=== PATIENT | female | born 1985 | race Caucasian/White ===

== ENCOUNTER 2016-07-01 15:35 | Emergency (ER) | payer MEDICAID ==
[~2016-07-01] VITALS: Ht 172.7 cm; Wt 77.0 kg
[~2016-07-01 15:35] MED LIST: BACT800T5 PO
[2016-07-01 15:44] VITALS: PULSE 68; RESP 16; TEMP 98.5; O2SAT 97
--- NOTE | 2016-07-01 16:05 | PD ---
HPI Chief Complaint: GI Complaint Time Seen by Provider: 15:51 Travel History International Travel<30 days: No Contact w/Intl Traveler<30days: No Traveled to known affect area: No History of Present Illness HPI This 30-year-old female says she has been feeling sluggish for a while. She says she has no energy and feels tired all the time. She says that there is no chance of . She has not been sexually active for him. He has not been fever or chills. She did see an eye doctor and was told that her left eye was a little bigger than the right and she should be evaluated for thyroid issues. She has no history of thyroid issues. She has some breast tenderness with her period. PFSH Past Medical History Hx Anticoagulant Therapy: No Heart Rhythm Problems: Yes (murmur) Diabetes: No Diminished Hearing: No Integumentary: Yes (DERMATITIS) Immunizations Current: Yes Tetanus Vaccination: > 5 Years Influenza Vaccination: No ?: Not : 6 Para: 3 Miscarriage: 2 : 1 Ovarian Cysts: Yes Tubal Ligation: Yes Past Surgical History Cholecystectomy: Yes Mastectomy: No Social History Alcohol Use: Yes (occ) Tobacco Use: Yes ("I SMOKE WHEN I DRINK ONLY") Substance Use: No (DENIES) Allergies-Medications (Allergen,Severity, Reaction): Coded Allergies: Penicillin (Verified Allergy, Severe, Anaphylaxis, 07/01/16) "I ALMOST FROM IT" Egg Allergy (Verified Allergy, Intermediate, Rash, 07/01/16) ALL OVER Reported Meds & Prescriptions Reported Meds & Active Scripts Active No Active Prescriptions or Reported Medications Review of Systems General / Constitutional: No: Fever, Chills Eyes: No: Diploplia HENT: No: Headaches, Vertigo Cardiovascular: No: Chest Pain or Discomfort, Palpitations Respiratory: No: Cough, Shortness of Breath Gastrointestinal: Positive: Nausea Genitourinary: No: Urgency Musculoskeletal: No: Myalgias, Arthralgias Skin: No Rash, No Itching Neurologic: Positive: Weakness, No: Syncope, Focal Abnormalities Psychiatric: No: Anxiety Endocrine: No: Heat Intolerance Hematologic/Lymphatic: No: Easy Bruising Physical Exam Narrative GENERAL: Well-developed female SKIN: Focused skin assessment warm/dry. HEAD: Atraumatic. Normocephalic. EYES: Pupils equal and round. No scleral icterus. No injection or drainage. ENT: No nasal bleeding or discharge. Mucous membranes pink and moist. NECK: Trachea midline. No JVD. Heart is not palpable CARDIOVASCULAR: Regular rate and rhythm. No murmur appreciated. RESPIRATORY: No accessory muscle use. Clear to auscultation. Breath sounds equal bilaterally. GASTROINTESTINAL: Abdomen soft, non-tender, nondistended. Hepatic and splenic margins not palpable. MUSCULOSKELETAL: No obvious deformities. No clubbing. No cyanosis. No edema. NEUROLOGICAL: Awake and alert. No obvious cranial nerve deficits. Motor grossly within normal limits. Normal speech. PSYCHIATRIC: Appropriate mood and affect; insight and judgment normal. Data Data Last Documented VS Vital Signs Date Time Temp Pulse Resp B/P Pulse Ox O2 Delivery O2 Flow Rate FiO2 07/01/16 15:44 98.5 68 16 97 Orders Complete Blood Count With Diff (07/01/16 16:00) Comprehensive Metabolic Panel (07/01/16 16:00) Urinalysis - C+S If Indicated (07/01/16 16:00) Magnesium (Mg) (07/01/16 16:00) Thyroid Stimulating Hormone (07/01/16 16:00) Labs Laboratory Tests Test 07/01/16 07/01/16 16:10 16:50 White Blood Count 5.7 TH/MM3 Red Blood Count 4.51 MIL/MM3 Hemoglobin 12.9 GM/DL Hematocrit 38.0 % Mean Corpuscular Volume 84.5 FL Mean Corpuscular Hemoglobin 28.7 PG Mean Corpuscular Hemoglobin 34.0 % Concent Red Cell Distribution Width 13.4 % Platelet Count 246 TH/MM3 Mean Platelet Volume 7.6 FL Neutrophils (%) (Auto) 64.3 % Lymphocytes (%) (Auto) 24.3 % Monocytes (%) (Auto) 4.7 % Eosinophils (%) (Auto) 5.9 % Basophils (%) (Auto) 0.8 % Neutrophils # (Auto) 3.7 TH/MM3 Lymphocytes # (Auto) 1.4 TH/MM3 Monocytes # (Auto) 0.3 TH/MM3 Eosinophils # (Auto) 0.3 TH/MM3 Basophils # (Auto) 0.0 TH/MM3 CBC Comment DIFF FINAL Differential Comment Sodium Level 142 MEQ/L Potassium Level 3.8 MEQ/L Chloride Level 110 MEQ/L Carbon Dioxide Level 24.9 MEQ/L Anion Gap 7 MEQ/L Blood Urea Nitrogen 15 MG/DL Creatinine 0.84 MG/DL Estimat Glomerular Filtration 80 ML/MIN Rate Random Glucose 110 MG/DL Calcium Level 8.7 MG/DL Magnesium Level 2.0 MG/DL Total Bilirubin 0.8 MG/DL Aspartate Amino Transf 17 U/L (AST/SGOT) Alanine Aminotransferase 22 U/L (ALT/SGPT) Alkaline Phosphatase 60 U/L Total Protein 7.6 GM/DL Albumin 3.9 GM/DL Thyroid Stimulating Hormone 1.130 uIU/ML 3rd Gen Urine pH 6.5 Urine Protein NEG mg/dL Urine Glucose (UA) NEG mg/dL Urine Ketones NEG mg/dL Urine Occult Blood SMALL Urine Nitrite NEG Urine Bilirubin NEG Urine Leukocyte Esterase NEG MDM Medical Decision Making Medical Screen Exam Complete: Yes Emergency Medical Condition: Yes Medical Record Reviewed: Yes Differential Diagnosis Differential includes anemia, hypothyroidism, generalized malaise Narrative Course Hemoglobin is normal. Her TSH is normal. Urine just shows trace blood no evidence of infection. Etiology for her malaise has not been determined. I recommended she follow up with her own medical doctor Diagnosis Primary Impression: Generalized weakness Departure Forms: Tests/Procedures, Work Release Enter return to work date: Jul 02, 2016 Scripts No Active Prescriptions or Reported Meds Disposition: DISCHARGE HOME Condition: Stable Rishi Paz MD Jul 01, 2016 16:05
[2016-07-01 16:39] LABS: CHLORIDE 110 MEQ/L (98-107); POTASSIUM 3.8 MEQ/L (3.5-5.1); SODIUM (NA) 142 MEQ/L (136-145)
[2016-07-01 16:42] LABS: ANION GAP 7 MEQ/L (5-15); BICARBONATE 24.9 MEQ/L (21.0-32.0); BLOOD UREA NITROGEN 15 MG/DL (7-18)
[2016-07-01 16:45] LABS: ALT (GPT) 22 U/L (10-53); AST (GOT) 17 U/L (15-37); GLOMERULAR FILTRATION RATE 80 ML/MIN (>89)
[2016-07-01 16:47] LABS: TOTAL BILIRUBIN ADULT 0.8 MG/DL (0.2-1.0)
[2016-07-01 16:48] LABS: ALKALINE PHOSPHATASE 60 U/L (45-117)
[2016-07-01 17:21] LABS: AUTOMATED NEUTROPHIL # 3.7 TH/MM3 (1.8-7.7); BASOPHIL % 0.8 % (0.0-2.0); EOSINOPHIL # 0.3 TH/MM3 (0-0.4); EOSINOPHIL % 5.9 % (0.0-4.0); HEMO FLAGS DIFF FINAL; LYMPH % 24.3 % (9.0-44.0); LYMPHOCYTE # 1.4 TH/MM3 (1.0-4.8); MEAN CELL VOLUME 84.5 FL (80.0-100.0); MEAN CORPUSCULAR HEMOGLOBIN 28.7 PG (27.0-34.0); MONO % 4.7 % (0.0-8.0); NEUT % 64.3 % (16.0-70.0); PLATELET COUNT 246 TH/MM3 (150-450); RED BLOOD COUNT 4.51 MIL/MM3 (4.00-5.30); RED CELL DISTRIBUTION WIDTH 13.4 % (11.6-17.2); WHITE BLOOD COUNT 5.7 TH/MM3 (4.0-11.0)
[2016-07-01 17:27] LABS: BLOOD, URINE SMALL (NEG); GLUCOSE,URINE NEG (NEG); KETONE, URINE NEG (NEG); NITRITE,URINE NEG (NEG); PH, URINE 6.5 (5.0-8.5)
[2016-07-01 17:40] LABS: METHOD OF COLLECTION CLEAN CATCH
[2016-07-01 17:41] LABS: URINE COLOR YELLOW (YELLW/STRAW); WBC, URINE 0-2 /hpf (0-5)
[2016-07-01 17:42] LABS: BACTERIA, URINE FEW /hpf; MUCUS URINE MOD /lpf (OCC); SQUAMOUS EPITHELIAL CELL URINE 0-5 /hpf (0-5)
[2016-07-01 17:48] VITALS: BP 128/74; PULSE 66; RESP 16; O2SAT 97
[2016-07-01 18:49] LABS: COMMENT (UR) CULT NOT INDICATED; CULTURE IF INDICATED CULT NOT INDICATED
== END 2016-07-01 18:16 | disposition home or self-care (01) ==
LOC: PHED 15:35
DX: R53.1 Weakness (principal); Z72.0 Tobacco use
CPT/HCPCS: 80053; 81001; 83735; 84443; 85025; 99283

== ENCOUNTER 2016-08-28 18:51 | Emergency (ER) | payer SELFPAY ==
[~2016-08-28] VITALS: Ht 172.7 cm; Wt 79.4 kg
[2016-08-28 19:45] VITALS: BP 110/76; PULSE 56; RESP 18; TEMP 98; O2SAT 98
[2016-08-28 19:58] LABS: GLUCOSE,URINE NEG (NEG); KETONE, URINE NEG (NEG); NITRITE,URINE NEG (NEG); PH, URINE 6.5 (5.0-8.5)
[2016-08-28 20:04] LABS: BLOOD, URINE MOD (NEG); URINE COLOR YELLOW (YELLW/STRAW)
[2016-08-28 20:06] LABS: COMMENT (UR) CULT NOT INDICATED; CULTURE IF INDICATED CULT NOT INDICATED; RBC, URINE 0-3 /hpf (0-3); WBC, URINE 0-2 /hpf (0-5)
[2016-08-28 20:45] VITALS: BP 108/64; PULSE 58; RESP 18; O2SAT 100
--- NOTE | 2016-08-28 21:08 | PD ---
HPI Chief Complaint: Fly Winder Problem/Complaint Time Seen by Provider: 20:24 Travel History International Travel<30 days: No Contact w/Intl Traveler<30days: No Traveled to known affect area: No History of Present Illness HPI 31-year-old female here for evaluation of lower abdominal cramping, foul- smelling vaginal discharge, and a vesicular lesion on her outer left lower lip. Patient describes lower abdominal cramping for last 3 weeks. History of bilateral tubal ligation and cholecystectomy. No other abdominal surgeries. She has noted foul-smelling vaginal discharge. She is , however there was a recent split in her marriage several months ago, with the couple returning together 2 months ago. A couple years ago she did have chlamydia with her current . No urinary symptoms. No fevers. No vaginal bleeding. PFSH Past Medical History Hx Anticoagulant Therapy: No Heart Rhythm Problems: Yes (murmur) Diabetes: No Diminished Hearing: No Integumentary: Yes (DERMATITIS) Immunizations Current: Yes ?: Not LMP: 4 days ago : 6 Para: 3 Miscarriage: 2 : 1 Ovarian Cysts: Yes Tubal Ligation: Yes Past Surgical History Cholecystectomy: Yes Mastectomy: No Social History Alcohol Use: Yes (occ) Tobacco Use: Yes ("I SMOKE WHEN I DRINK ONLY") Substance Use: No (DENIES) Allergies-Medications (Allergen,Severity, Reaction): Coded Allergies: Penicillin (Verified Allergy, Severe, Anaphylaxis, 08/28/16) "I ALMOST FROM IT" Egg Allergy (Verified Allergy, Intermediate, Rash, 08/28/16) ALL OVER Reported Meds & Prescriptions Reported Meds & Active Scripts Active Acyclovir 800 Mg Tab 800 Mg PO 5 TIMES A DAY 5 Days Flagyl (Metronidazole) 500 Mg Tab 500 Mg PO BID 7 Days Review of Systems Except as stated in HPI: all other systems reviewed are Neg Physical Exam Narrative GENERAL: Well-developed, well-nourished, comfortable, no acute distress. SKIN: Focused skin assessment warm/dry. HEAD: Atraumatic. Normocephalic. EYES: Pupils equal and round. No scleral icterus. No injection or drainage. ENT: Mucous membranes pink and moist. Out her left lower lip with vesicular lesion. NECK: Trachea midline. No JVD. CARDIOVASCULAR: Regular rate and rhythm. RESPIRATORY: No accessory muscle use. Clear to auscultation. Breath sounds equal bilaterally. GASTROINTESTINAL: Abdomen soft, nondistended. Mild to moderate suprapubic tenderness without peritoneal signs. No tenderness over McBurney's point. No hernias. No peritoneal signs. Normal bowel sounds. CABLE PLACER: Exam performed in the presence of female nurse. Normal external genitalia. Moderate amount of mucopurulent vaginal discharge that is somewhat foul-smelling. No vaginal bleeding. Normal cervix. Moderate uterine tenderness/CMT. No adnexal masses or tenderness. MUSCULOSKELETAL: No obvious deformities. No clubbing. No cyanosis. No edema. NEUROLOGICAL: Awake and alert. No obvious cranial nerve deficits. Motor grossly within normal limits. Normal speech. PSYCHIATRIC: Appropriate mood and affect; insight and judgment normal. Data Data Last Documented VS Vital Signs Date Time Temp Pulse Resp B/P Pulse Ox O2 Delivery O2 Flow Rate FiO2 08/28/16 23:03 61 18 114/72 100 08/28/16 21:45 Room Air 08/28/16 19:45 98.0 Orders Urinalysis - C+S If Indicated (08/28/16 19:26) Ed Urine Pregnancytest Poc (08/28/16 19:26) Gc And Chlamydia Pcr (08/28/16 20:32) Wet Prep Profile (08/28/16 20:32) Herpes Simplex Virus Culture (08/28/16 20:32) Azithromycin Powd Pack (Zithromax Powd P (08/28/16 21:30) Ceftriaxone Inj (Rocephin Inj) (08/28/16 21:30) Lidocaine 1% Inj (50 Ml) (Xylocaine 1% I (08/28/16 21:30) Metronidazole (Flagyl) (08/28/16 21:30) Ibuprofen (Motrin) (08/28/16 23:00) Labs Laboratory Tests Test 08/28/16 08/28/16 19:50 21:00 Urine Color YELLOW Urine Turbidity SLIGHT Urine pH 6.5 Urine Specific [place] 1.020 Urine Protein NEG mg/dL Urine Glucose (UA) NEG mg/dL Urine Ketones NEG mg/dL Urine Occult Blood MOD Urine Nitrite NEG Urine Bilirubin NEG Urine Leukocyte Esterase NEG Urine RBC 0-3 /hpf Urine WBC 0-2 /hpf Urine Squamous Epithelial 6-8 /hpf Cells Microscopic Urinalysis Comment CULT NOT INDICATED Clue Cells (Wet Prep) PRESENT Vaginal Trichomonas (Wet Prep) NONE SEEN Vaginal Yeast (Wet Prep) NONE SEEN Chlamydia trachomatis DNA INVALID (PCR) Neisseria gonorrhoeae DNA INVALID (PCR) MDM Medical Decision Making Medical Screen Exam Complete: Yes Emergency Medical Condition: Yes Differential Diagnosis PID, HSV, BV, Trichomonas, UTI, cystitis, appendicitis less likely, Narrative Course Vital signs show heart rate 56, blood pressure 110/76, pulse ox 90% on room air , oral temp of 98F. UA shows moderate occult blood, 6 epithelial cells, negative nitrites, negative leukocyte esterase, not suggestive of UTI. Blood prep is positive for clue cells, negative for Trichomonas, negative for yeast. Patient was made aware of all findings. She would like to be treated for possible gonorrhea and chlamydia. On exam she does have some mild to moderate suprapubic tenderness as well as some moderate uterine tenderness. No tenderness over McBurney's point. I do not believe that there is an acute intra -abdominal process at this time to warrant CT or any other imaging. Patient is overall very well-appearing and appears very comfortable. Her symptoms have also been going on for last 3 weeks. Plan is to give her IM Rocephin, oral azithromycin, and start her on Flagyl for her BV. I will also give her prescription for acyclovir for the vesicular lesion seen on her lip as this is likely HSV. Patient instructed to follow-up with a primary care physician/CABLE PLACER physician this week. She was informed on when to return to the emergency department. She verbalizes understanding and agreement with plan. Diagnosis Primary Impression: Bacterial vaginosis Additional Impression: PID (acute pelvic inflammatory disease) Referrals: Community Health Planning Director 3 days Primary Care Physician 3 days Additional Instructions: Follow-up with a primary care physician this week. Follow-up with a front maker this week. Take antibiotic as prescribed. Return to the emergency department for worsening symptoms or any other concerns. Scripts Acyclovir 800 Mg [id number] Mg PO 5 TIMES A DAY 5 Days Ref 0 Prov:Sheng Farias MD 08/28/16 Metronidazole (Flagyl)500 Mg [id number] Mg PO BID 7 Days Ref 0 Prov:Sheng Farias MD 08/28/16 Disposition: 01 DISCHARGE HOME Condition: Stable Sheng Farias MD Aug 28, 2016 21:08
[2016-08-28] MEDS ORDERED: LIDOCAINE HCL 1% 50 ML VIAL IM ONE (21:30)
[2016-08-28] MEDS ORDERED: AZITHROMYCIN PWD FOR SUSP 1 GM PACKET PO ONE (21:30)
[2016-08-28] MEDS ORDERED: cefTRIAXone 250 MG VIAL IM ONE (21:30)
[2016-08-28] MEDS ORDERED: metroNIDAZOLE 500 MG TAB PO ONE (21:30)
[2016-08-28] MEDS ORDERED: METR-1 PO (21:32)
[2016-08-28] MEDS ORDERED: ACYC800T PO (21:32)
[2016-08-28 21:45] VITALS: BP 107/69; PULSE 55; RESP 18; O2SAT 100
[2016-08-28] MEDS ORDERED: IBUPROFEN 600 MG TAB PO ONE (23:00)
[2016-08-28 23:03] VITALS: BP 114/72
[2016-08-29 03:04] LABS: CHLAMYDIA PCR INVALID (NOT DETECT); NEISSERIA PCR INVALID (NOT DETECT)
== END 2016-08-28 23:03 | disposition home or self-care (01) ==
LOC: PHED 18:51
DX: N76.0 Acute vaginitis (principal); N73.9 Female pelvic inflammatory disease, unspecified; B00.9 Herpesviral infection, unspecified; R01.1 Cardiac murmur, unspecified; Z72.0 Tobacco use
CPT/HCPCS: 81001; 84703; 87210; 87255; 87491; 87591; 96372; 99284; J0696

== ENCOUNTER 2017-03-19 21:12 | Emergency (ER) | payer SELFPAY ==
[~2017-03-19 21:12] MED LIST changes: +ACYC800T PO; -BACT800T5 PO; +METR-1 PO
[2017-03-19 21:26] VITALS: BP 127/80; PULSE 69; RESP 20; TEMP 98.1; O2SAT 99
== END 2017-03-19 23:25 | disposition left against medical advice (07) ==
LOC: PHED 21:12
DX: R53.1 Weakness (principal)
CPT/HCPCS: 99281

== ENCOUNTER 2017-03-23 00:37 | Emergency (ER) | payer MEDICAID ==
[~2017-03-23] VITALS: Ht 172.7 cm; Wt 71.5 kg
[2017-03-23 00:44] VITALS: BP 123/68; PULSE 78; RESP 18; TEMP 97.7; O2SAT 100
[2017-03-23] MEDS ORDERED: ZOLO50TA PO (00:50)
--- NOTE | 2017-03-23 01:11 | PD ---
HPI Chief Complaint: Psychiatric Symptoms Time Seen by Provider: 00:55 Travel History International Travel<30 days: No Contact w/Intl Traveler<30days: No Traveled to known affect area: No History of Present Illness HPI The patient is a 31-year-old female that came in [facility] because she is feeling depressed. She states that she is not suicidal or homicidal. She states she was given sertraline at [facility] 2 months ago and started to feel better but now is becoming depressed even though she is taking the medication. She wanted a medication adjustment here. The patient has a past history of cocaine abuse in 2014 but denies doing this currently. [facility] Past Medical History Hx Anticoagulant Therapy: No Depression: Yes Heart Rhythm Problems: Yes (murmur) Diabetes: No Diminished Hearing: No Integumentary: Yes (DERMATITIS) Immunizations Current: Yes ?: Not LMP: 03/05/17 : 6 Para: 3 Miscarriage: 2 : 1 Ovarian Cysts: Yes Tubal Ligation: Yes Past Surgical History Cholecystectomy: Yes Mastectomy: No Social History Alcohol Use: No Tobacco Use: No (STATED 03/23/17 "OCCASIONALLY") Substance Use: No Allergies-Medications (Allergen,Severity, Reaction): Coded Allergies: penicillin G (Unverified Allergy, Severe, Anaphylaxis, 03/23/17) "I ALMOST FROM IT" egg (Unverified Allergy, Intermediate, Rash, 03/23/17) ALL OVER Reported Meds & Prescriptions Reported Meds & Active Scripts Active Reported Zoloft (Sertraline HCl) 50 Mg Tab 50 Mg PO DAILY Review of Systems Except as stated in HPI: all other systems reviewed are Neg Physical Exam Narrative GENERAL: Well-nourished, well-developed patient in no apparent distress. Her vital signs are normal. SKIN: Focused skin assessment warm/dry. No needle tracks nor wrist slash taylor are present. HEAD: Normocephalic. EYES: No scleral icterus. No injection or drainage. NECK: Supple, trachea midline. No JVD or lymphadenopathy. CARDIOVASCULAR: Regular rate and rhythm without murmurs, gallops, or rubs. RESPIRATORY: Breath sounds equal bilaterally. No accessory muscle use. GASTROINTESTINAL: Abdomen soft, non-tender, nondistended. MUSCULOSKELETAL: No cyanosis, or edema. BACK: Nontender without obvious deformity. No CVA tenderness. Data Data Last Documented VS Vital Signs Date Time Temp Pulse Resp B/P (MAP) Pulse Ox O2 Delivery O2 Flow Rate FiO2 03/23/17 00:44 97.7 78 18 123/68 (86) 100 MDM Medical Decision Making Medical Screen Exam Complete: Yes Emergency Medical Condition: Yes Medical Record Reviewed: Yes Differential Diagnosis Suicidal depression, minimal depression, medication-induced depression, recreational drug-induced depression Narrative Course The patient has no history no evidence of any recreational drug use causing the depression. The sertraline is not working as well as it did. She needs to follow-up with a psychiatrist. She states she will get insurance shortly and she can see one. I do not feel comfortable adjusting her psychiatric medication. Procedures EKG Prior to Arrival: No EKG Not Completed: EKG Not Medically Necessary Diagnosis Primary Impression: Minor depression Additional Instructions: Ideally, he will get your insurance and follow-up with a psychiatrist/ psychologist. In the meantime the Dr. timmy Watts [facility] wrote the prescription and may try something else. I do not feel comfortable in adjusting your psychiatric medication. Med/Other Pt SpecificInfo: No Change to Meds Disposition: 01 DISCHARGE HOME Condition: Stable Chris Galindo MD Mar 23, 2017 01:11
== END 2017-03-23 01:22 | disposition home or self-care (01) ==
LOC: PHED 00:37
DX: F32.9 Major depressive disorder, single episode, unspecified (principal); Z88.0 Allergy status to penicillin
CPT/HCPCS: 99281

== ENCOUNTER 2017-08-11 17:09 | Emergency (ER) | payer MEDICAID ==
[~2017-08-11] VITALS: Ht 171.4 cm; Wt 72.5 kg
[~2017-08-11 17:09] MED LIST changes: -ACYC800T PO; -METR-1 PO; +ZOLO50TA PO
[2017-08-11 17:11] VITALS: BP 130/65; PULSE 80; RESP 16; TEMP 98.3; O2SAT 99
--- NOTE | 2017-08-11 17:38 | PD ---
HPI Chief Complaint: Fever Time Seen by Provider: 17:36 Travel History International Travel<30 days: No Contact w/Intl Traveler<30days: No Traveled to known affect area: No History of Present Illness HPI Patient comes in complaining of intermittent fevers, has been ongoing for approximately a week. Aside from this intermittent fevers, the patient has only noted a small amount of red color change to her urine, however she does not have any suprapubic area pain or spasms, she does not have any flank pain, and she does not have any nausea vomiting or diarrhea. She also denied having any runny nose sore throat or cough with her symptoms. She also denies having any headache rash or neck pain/neck stiffness either. No aggravating factors. States allergy to penicillin and coag Past medical history significant for corrective lenses, murmur, cholecystectomy , ovarian cyst, with 1 miscarriage, history of depression, occasional use of cigarettes PFSH Past Medical History Hx Anticoagulant Therapy: No Depression: Yes Heart Rhythm Problems: Yes (murmur) Diabetes: No Diminished Hearing: No Integumentary: Yes (DERMATITIS) Immunizations Current: Yes ?: Unknown : 6 Para: 3 Miscarriage: 2 : 1 Ovarian Cysts: Yes Tubal Ligation: Yes Past Surgical History Cholecystectomy: Yes Mastectomy: No Social History Alcohol Use: No Tobacco Use: No (STATED 03/23/17 "OCCASIONALLY") Substance Use: No Allergies-Medications (Allergen,Severity, Reaction): Coded Allergies: penicillin G (Unverified Allergy, Severe, Anaphylaxis, 08/11/17) "I ALMOST FROM IT" egg (Unverified Allergy, Intermediate, Rash, 08/11/17) ALL OVER Reported Meds & Prescriptions Reported Meds & Active Scripts Active Reported Zoloft (Sertraline HCl) 50 Mg Tab 100 Mg PO DAILY Review of Systems General / Constitutional: No: Fever Eyes: No: Visual changes HENT: No: Headaches Cardiovascular: No: Chest Pain or Discomfort Respiratory: No: Shortness of Breath Gastrointestinal: No: Abdominal Pain Genitourinary: Positive: Urgency, Frequency, Dysuria Musculoskeletal: No: Pain Skin: No Rash Neurologic: No: Weakness Psychiatric: No: Depression Endocrine: No: Polydipsia Hematologic/Lymphatic: No: Easy Bruising Physical Exam Narrative GENERAL: SKIN: Warm and dry. HEAD: Atraumatic. Normocephalic. EYES: Pupils equal and round. No scleral icterus. No injection or drainage. ENT: No nasal bleeding or discharge. Mucous membranes pink and moist. NECK: Trachea midline. No JVD. CARDIOVASCULAR: Regular rate and rhythm. RESPIRATORY: No accessory muscle use. Clear to auscultation. Breath sounds equal bilaterally. GASTROINTESTINAL: Abdomen soft, non-tender, nondistended. MILD LEFT CVA T MUSCULOSKELETAL: Extremities without clubbing, cyanosis, or edema. No obvious deformities. NEUROLOGICAL: Awake and alert. No obvious cranial nerve deficits. Motor grossly within normal limits. Five out of 5 muscle strength in the arms and legs. Normal speech. PSYCHIATRIC: Appropriate mood and affect; insight and judgment normal. Data Data Last Documented VS Vital Signs Date Time Temp Pulse Resp B/P (MAP) Pulse Ox O2 Delivery O2 Flow Rate FiO2 08/11/17 18:56 72 16 90/62 (71) 98 Room Air 08/11/17 17:11 98.3 Orders Orders Complete Blood Count With Diff (08/11/17 17:48) Comprehensive Metabolic Panel (08/11/17 17:48) Lipase (08/11/17 17:48) Urinalysis - C+S If Indicated (08/11/17 17:48) Ct Abd/Pel W/O Iv Contrast (08/11/17 17:48) Iv Access Insert/Monitor (08/11/17 17:48) Ecg Monitoring (08/11/17 17:48) Oximetry (08/11/17 17:48) NPO (08/11/17 17:48) Sodium Chloride 0.9% Flush (Ns Flush) (08/11/17 18:00) Ed Urine Pregnancytest Poc (08/11/17 17:48) Urine Culture (08/11/17 18:10) Levofloxacin (Levaquin) (08/11/17 18:30) Labs Laboratory Tests Test 08/11/17 18:10 White Blood Count 10.9 TH/MM3 Red Blood Count 4.41 MIL/MM3 Hemoglobin 11.9 GM/DL Hematocrit 35.6 % Mean Corpuscular Volume 80.6 FL Mean Corpuscular Hemoglobin 27.0 PG Mean Corpuscular Hemoglobin Concent 33.5 % Red Cell Distribution Width 12.9 % Platelet Count 208 TH/MM3 Mean Platelet Volume 7.1 FL Neutrophils (%) (Auto) 78.0 % Lymphocytes (%) (Auto) 9.1 % Monocytes (%) (Auto) 11.8 % Eosinophils (%) (Auto) 0.8 % Basophils (%) (Auto) 0.3 % Neutrophils # (Auto) 8.5 TH/MM3 Lymphocytes # (Auto) 1.0 TH/MM3 Monocytes # (Auto) 1.3 TH/MM3 Eosinophils # (Auto) 0.1 TH/MM3 Basophils # (Auto) 0.0 TH/MM3 CBC Comment DIFF FINAL Differential Comment Urine Color YELLOW Urine Turbidity CLOUDY Urine pH 5.5 Urine Specific [place] 1.020 Urine Protein 30 mg/dL Urine Glucose (UA) NEG mg/dL Urine Ketones NEG mg/dL Urine Occult Blood LARGE Urine Nitrite POS Urine Bilirubin NEG Urine Urobilinogen 0.2 MG/DL Urine Leukocyte Esterase LARGE Urine RBC 10-14 /hpf Urine WBC 100-200 /hpf Urine WBC Clumps FEW Urine Squamous Epithelial Cells 0-5 /hpf Urine Bacteria MANY /hpf Microscopic Urinalysis Comment CULTURE INDICATED Blood Urea Nitrogen 8 MG/DL Creatinine 0.78 MG/DL Random Glucose 82 MG/DL Total Protein 7.9 GM/DL Albumin 3.4 GM/DL Calcium Level 8.4 MG/DL Alkaline Phosphatase 77 U/L Aspartate Amino Transf (AST/SGOT) 24 U/L Alanine Aminotransferase (ALT/SGPT) 38 U/L Total Bilirubin 0.4 MG/DL Sodium Level 139 MEQ/L Potassium Level 3.7 MEQ/L Chloride Level 108 MEQ/L Carbon Dioxide Level 24.9 MEQ/L Anion Gap 6 MEQ/L Estimat Glomerular Filtration Rate 86 ML/MIN Lipase 82 U/L [facility] Medical Decision Making Medical Screen Exam Complete: Yes Emergency Medical Condition: Yes Medical Record Reviewed: Yes Differential Diagnosis Pyelonephritis versus kidney stones versus pneumonia versus UTI versus enteritis Narrative Course CBC shows no leukocytosis, no anemia, normal platelet count, no left shift UA is consistent with heavy UTI Electrolytes are all within normal limits, normal kidney liver and pancreatic functions Diagnosis Primary Impression: ASCENDING CYSTITIS Patient Instructions: General Instructions, Kidney Infection (ED) Scripts Ciprofloxacin (Cipro) 500 Mg Tab 500 MG PO BID for Infection for 7 Days, #14 TAB 0 Refills Prov: Medardo Sofia MD 08/11/17 Tramadol (Ultram) 50 Mg Tab 50 MG PO Q8H Y for PAIN, #15 TAB 0 Refills Prov: Medardo Sofia MD 08/11/17 Disposition: 01 DISCHARGE HOME Condition: Stable Medardo Sofia MD Aug 11, 2017 17:38
[2017-08-11] MEDS ORDERED: SODIUM CHLORIDE 0.9% FLUSH 10 ML FLUSH IV FLUSH PRN (18:00)
[2017-08-11 18:18] LABS: AUTOMATED NEUTROPHIL # 8.5 TH/MM3 (1.8-7.7); BASOPHIL % 0.3 % (0.0-2.0); EOSINOPHIL # 0.1 TH/MM3 (0-0.4); EOSINOPHIL % 0.8 % (0.0-4.0); HEMATOCRIT 35.6 % (35.0-46.0); HEMOGLOBIN 11.9 GM/DL (11.6-15.3); LYMPH % 9.1 % (9.0-44.0); MEAN CELL VOLUME 80.6 FL (80.0-100.0); MEAN CORPUSCULAR HGB CONC 33.5 % (32.0-36.0); MEAN PLATELET VOLUME 7.1 FL (7.0-11.0); MONO % 11.8 % (0.0-8.0); MONOCYTE # 1.3 TH/MM3 (0-0.9); PLATELET COUNT 208 TH/MM3 (150-450); RED BLOOD COUNT 4.41 MIL/MM3 (4.00-5.30); RED CELL DISTRIBUTION WIDTH 12.9 % (11.6-17.2); WHITE BLOOD COUNT 10.9 TH/MM3 (4.0-11.0)
[2017-08-11 18:19] LABS: BILIRUBIN, URINE NEG (NEG); BLOOD, URINE LARGE (NEG); GLUCOSE,URINE NEG (NEG); KETONE, URINE NEG (NEG); NITRITE,URINE POS (NEG); PH, URINE 5.5 (5.0-8.5); URINE COLOR YELLOW (YELLW/STRAW); URINE LEUKOCYTE ESTERASE LARGE (NEG)
[2017-08-11 18:24] LABS: WBC, URINE 100-200 /hpf (0-5); WHITE BLOOD CELL CLUMPS FEW
[2017-08-11 18:25] LABS: BACTERIA, URINE MANY /hpf; CHLORIDE 108 MEQ/L (98-107); SODIUM (NA) 139 MEQ/L (136-145); SQUAMOUS EPITHELIAL CELL URINE 0-5 /hpf (0-5)
[2017-08-11 18:28] LABS: CALCIUM 8.4 MG/DL (8.5-10.1)
[2017-08-11 18:29] LABS: ALBUMIN 3.4 GM/DL (3.4-5.0); BICARBONATE 24.9 MEQ/L (21.0-32.0); BLOOD UREA NITROGEN 8 MG/DL (7-18); GLUCOSE,RANDOM 82 MG/DL (74-106)
[2017-08-11] MEDS ORDERED: LEVOFLOXACIN 750 MG TAB PO ONE (18:30)
[2017-08-11 18:32] LABS: ALT (GPT) 38 U/L (10-53); AST (GOT) 24 U/L (15-37); CREATININE 0.78 MG/DL (0.50-1.00); GLOMERULAR FILTRATION RATE 86 ML/MIN (>89)
[2017-08-11 18:33] LABS: TOTAL BILIRUBIN ADULT 0.4 MG/DL (0.2-1.0); TOTAL PROTEIN 7.9 GM/DL (6.4-8.2)
[2017-08-11 18:35] LABS: ALKALINE PHOSPHATASE 77 U/L (45-117)
[2017-08-11 18:56] VITALS: BP 90/62; PULSE 72; RESP 16; O2SAT 98
--- NOTE | 2017-08-11 19:31 | RADRPT ---
EXAM DATE: 08/11/2017 6:53 PM EDT AGE/SEX: 31 years / Female INDICATIONS: Fever for three days. CLINICAL DATA: This is the patient's initial encounter. Patient reports that signs and symptoms have been present for 3 days and indicates a pain score of 0/10. MEDICAL/SURGICAL HISTORY: None. Tubal ligation. Cholecystectomy. RADIATION DOSE: 5.75 CTDI (mGy) COMPARISON: No prior [place] exams available for comparison. TECHNIQUE: Multiple contiguous axial images were obtained through the abdomen. Images were obtained using multiple row detector helical technique. Using dose reduction techniques, radiation dose was ke pt as low as reasonably achievable to obtain optimal diagnostic quality images. FINDINGS: Lung bases are clear. No acute findings in the liver, spleen, adrenals, kidneys or pancreas. Previous cholecystectomy. No free fluid. No bowel obstruction. No adenopathy. No acute bony abnormalities are identified. CONCLUSION: 1. No acute intracranial abnormalities. Electronically signed by: López Thompson MD 08/11/2017 7:29 PM EDT
[2017-08-11] MEDS ORDERED: CIPR-9 PO (19:32)
[2017-08-11] MEDS ORDERED: TRAM50 PO (19:32)
[2017-08-11] MEDS ORDERED: ZOFR4TAB3 SL (20:16)
== END 2017-08-11 19:49 | disposition home or self-care (01) ==
LOC: PHED 17:09
DX: N30.80 Other cystitis without hematuria (principal); B96.20 Unspecified Escherichia coli [E. coli] as the cause of diseases classified elsewhere; F32.9 Major depressive disorder, single episode, unspecified
CPT/HCPCS: 74176; 80053; 81001; 83690; 84703; 85025; 87077; 87086; 87186; 99285

== ENCOUNTER 2017-08-13 12:49 | Emergency (ER) | payer MEDICAID ==
[~2017-08-13] VITALS: Ht 172.7 cm; Wt 72.4 kg
[~2017-08-13 12:49] MED LIST changes: +CIPR-9 PO; +TRAM50 PO; +ZOFR4TAB3 SL
[2017-08-13 12:51] VITALS: BP 138/69; PULSE 78; RESP 18; TEMP 98.3; O2SAT 98
--- NOTE | 2017-08-13 13:18 | PD ---
HPI Chief Complaint: Headache Time Seen by Provider: 13:02 Travel History International Travel<30 days: No Contact w/Intl Traveler<30days: No Traveled to known affect area: No History of Present Illness HPI This 31-year-old female is complaining of headache. She has been having a headache for a couple of days. It has been fairly constant. She was here 2 days ago and diagnosed with urinary tract infection. She was put on Cipro. The culture from that visit grew E. coli which is sensitive to Cipro. She does not feel like she is getting any better. She says she still having fever. PFSH Past Medical History Hx Anticoagulant Therapy: No Depression: Yes Heart Rhythm Problems: Yes (murmur) Diabetes: No Diminished Hearing: No Integumentary: Yes (DERMATITIS) Immunizations Current: Yes Influenza Vaccination: No ?: Not : 6 Para: 3 Miscarriage: 2 : 1 Ovarian Cysts: Yes Tubal Ligation: Yes Past Surgical History Cholecystectomy: Yes Mastectomy: No Social History Alcohol Use: Yes (occasionally) Tobacco Use: Yes (1 cig per day) Substance Use: No Allergies-Medications (Allergen,Severity, Reaction): Coded Allergies: penicillin G (Verified Allergy, Severe, Anaphylaxis, 08/13/17) "I ALMOST FROM IT" egg (Verified Allergy, Intermediate, Rash, 08/13/17) ALL OVER Reported Meds & Prescriptions Reported Meds & Active Scripts Active Zofran Odt (Ondansetron Odt) 4 Mg Tab 4 Mg SL Q6HR PRN Cipro (Ciprofloxacin HCl) 500 Mg Tab 500 Mg PO BID 7 Days Ultram (Tramadol HCl) 50 Mg Tab 50 Mg PO Q8H PRN Reported Zoloft (Sertraline HCl) 50 Mg Tab 100 Mg PO DAILY Review of Systems General / Constitutional: Positive: Fever, Chills Eyes: No: Diploplia HENT: Positive: Headaches Cardiovascular: No: Chest Pain or Discomfort, Palpitations Respiratory: No: Cough, Shortness of Breath Gastrointestinal: No: Nausea, Vomiting Genitourinary: Positive: Frequency, No: Urgency Musculoskeletal: Positive: Myalgias Skin: No Rash Neurologic: Positive: Weakness, No: Dizziness Psychiatric: No: Anxiety Endocrine: No: Heat Intolerance Hematologic/Lymphatic: No: Easy Bruising Physical Exam Narrative GENERAL: Well-developed female SKIN: Focused skin assessment warm/dry. HEAD: Atraumatic. Normocephalic. EYES: Pupils equal and round. No scleral icterus. No injection or drainage. ENT: No nasal bleeding or discharge. Mucous membranes pink and moist. NECK: Trachea midline. No JVD. Her neck is supple CARDIOVASCULAR: Regular rate and rhythm. No murmur appreciated. RESPIRATORY: No accessory muscle use. Clear to auscultation. Breath sounds equal bilaterally. GASTROINTESTINAL: Abdomen soft, non-tender, nondistended. Hepatic and splenic margins not palpable. MUSCULOSKELETAL: No obvious deformities. No clubbing. No cyanosis. No edema. NEUROLOGICAL: Awake and alert. No obvious cranial nerve deficits. Motor grossly within normal limits. Normal speech. PSYCHIATRIC: Appropriate mood and affect; insight and judgment normal. Data Data Last Documented VS Vital Signs Date Time Temp Pulse Resp B/P (MAP) Pulse Ox O2 Delivery O2 Flow Rate FiO2 08/13/17 14:10 84 16 104/69 (81) 100 Room Air 08/13/17 12:51 98.3 Orders Orders Sepsis Workup Initiated (08/13/17 ) Complete Blood Count With Diff (08/13/17 13:14) Comprehensive Metabolic Panel (08/13/17 13:14) Lactic Acid Sepsis Protocol (08/13/17 13:14) Urinalysis - C+S If Indicated (08/13/17 13:14) Blood Culture (08/13/17 13:14) Blood Glucose (08/13/17 13:14) Ecg Monitoring (08/13/17 13:14) Iv Access Insert/Monitor (08/13/17 13:14) Oximetry (08/13/17 13:14) Oxygen Administration (08/13/17 13:14) Ct Brain W/O Iv Contrast(Rout) (08/13/17 13:14) Sodium Chlor 0.9% 1000 Ml Inj (Ns 1000 M (08/13/17 13:30) Ondansetron Inj (Zofran Inj) (08/13/17 13:30) Ketorolac Inj (Toradol Inj) (08/13/17 13:30) Urine Culture (08/13/17 13:25) Labs Laboratory Tests Test 08/13/17 13:25 08/13/17 13:35 Urine Collection Type CLEAN CATCH Urine Color YELLOW Urine Turbidity SL CLOUDY Urine pH 5.5 Urine Specific [place] 1.025 Urine Protein NEG mg/dL Urine Glucose (UA) NEG mg/dL Urine Ketones NEG mg/dL Urine Occult Blood LARGE Urine Nitrite NEG Urine Bilirubin NEG Urine Urobilinogen 0.2 MG/DL Urine Leukocyte Esterase NEG Urine RBC 4-9 /hpf Urine WBC 15-19 /hpf Urine WBC Clumps FEW Urine Squamous Epithelial Cells > 8 /hpf Urine Amorphous Sediment LARGE Urine Bacteria FEW /hpf Microscopic Urinalysis Comment CULTURE INDICATED Urine Collection Time 1325 White Blood Count 6.6 TH/MM3 Red Blood Count 4.49 MIL/MM3 Hemoglobin 11.2 GM/DL Hematocrit 37.3 % Mean Corpuscular Volume 83.0 FL Mean Corpuscular Hemoglobin 24.9 PG Mean Corpuscular Hemoglobin Concent 30.0 % Red Cell Distribution Width 12.8 % Platelet Count 246 TH/MM3 Mean Platelet Volume 7.1 FL Neutrophils (%) (Auto) 62.2 % Lymphocytes (%) (Auto) 21.7 % Monocytes (%) (Auto) 13.4 % Eosinophils (%) (Auto) 2.1 % Basophils (%) (Auto) 0.6 % Neutrophils # (Auto) 4.2 TH/MM3 Lymphocytes # (Auto) 1.4 TH/MM3 Monocytes # (Auto) 0.9 TH/MM3 Eosinophils # (Auto) 0.1 TH/MM3 Basophils # (Auto) 0.0 TH/MM3 CBC Comment AUTO DIFF Differential Comment AUTO DIFF CONFIRMED Blood Urea Nitrogen 11 MG/DL Creatinine 0.59 MG/DL Random Glucose 92 MG/DL Total Protein 8.0 GM/DL Albumin 3.3 GM/DL Calcium Level 8.9 MG/DL Alkaline Phosphatase 88 U/L Aspartate Amino Transf (AST/SGOT) 29 U/L Alanine Aminotransferase (ALT/SGPT) 50 U/L Total Bilirubin 0.4 MG/DL Sodium Level 137 MEQ/L Potassium Level 4.1 MEQ/L Chloride Level 107 MEQ/L Carbon Dioxide Level 22.5 MEQ/L Anion Gap 8 MEQ/L Estimat Glomerular Filtration Rate 119 ML/MIN Lactic Acid Level 0.7 mmol/L [facility] Medical Decision Making Medical Screen Exam Complete: Yes Emergency Medical Condition: Yes Medical Record Reviewed: Yes Differential Diagnosis Differential includes tension headache, adverse medication reaction, space- occupying lesion Narrative Course CT is negative for mass or other cause of headache. Her white count is lower than it was before and her urine has improved. She is gone from 100 white cells to 10. The culture from her previous visit has shown E. coli which is sensitive to the Cipro so I think she should continue that. It is possible that the headache is being aggravated by tramadol and I recommended that she stop this. She is stable for discharge Diagnosis Primary Impression: UTI (urinary tract infection) Additional Instructions: Stop tramadol as this may be contributing to her headache Disposition: 01 DISCHARGE HOME Condition: Stable Rishi Paz MD Aug 13, 2017 13:18
[2017-08-13] MEDS ORDERED: KETOROLAC TROMETHAMINE 30 MG/ML (IVP) VIAL IV PUSH ONE (13:30)
[2017-08-13] MEDS ORDERED: SODIUM CHLOR 0.9% 1000 ML INJ 1,000 ML IV ONE (13:30)
[2017-08-13] MEDS ORDERED: ONDANSETRON HCL 4 MG/2 ML VIAL IV PUSH ONE (13:30)
[2017-08-13 13:36] LABS: BILIRUBIN, URINE NEG (NEG); BLOOD, URINE LARGE (NEG); GLUCOSE,URINE NEG (NEG); KETONE, URINE NEG (NEG); NITRITE,URINE NEG (NEG); PH, URINE 5.5 (5.0-8.5); URINE COLOR YELLOW (YELLW/STRAW); URINE LEUKOCYTE ESTERASE NEG (NEG)
[2017-08-13 13:53] LABS: AUTOMATED NEUTROPHIL # 4.2 TH/MM3 (1.8-7.7); BASOPHIL % 0.6 % (0.0-2.0); EOSINOPHIL # 0.1 TH/MM3 (0-0.4); EOSINOPHIL % 2.1 % (0.0-4.0); HEMATOCRIT 37.3 % (35.0-46.0); HEMOGLOBIN 11.2 GM/DL (11.6-15.3); LYMPH % 21.7 % (9.0-44.0); LYMPHOCYTE # 1.4 TH/MM3 (1.0-4.8); MEAN CORPUSCULAR HEMOGLOBIN 24.9 PG (27.0-34.0); MEAN PLATELET VOLUME 7.1 FL (7.0-11.0); MONO % 13.4 % (0.0-8.0); MONOCYTE # 0.9 TH/MM3 (0-0.9); NEUT % 62.2 % (16.0-70.0); PLATELET COUNT 246 TH/MM3 (150-450); RED BLOOD COUNT 4.49 MIL/MM3 (4.00-5.30); RED CELL DISTRIBUTION WIDTH 12.8 % (11.6-17.2); WHITE BLOOD COUNT 6.6 TH/MM3 (4.0-11.0)
[2017-08-13 13:53] LABS: AMORPHOUS SEDIMENT, URINE LARGE; BACTERIA, URINE FEW /hpf; SQUAMOUS EPITHELIAL CELL URINE > 8 /hpf (0-5); WBC, URINE 15-19 /hpf (0-5); WHITE BLOOD CELL CLUMPS FEW
[2017-08-13 14:04] LABS: CHLORIDE 107 MEQ/L (98-107); SODIUM (NA) 137 MEQ/L (136-145)
[2017-08-13 14:07] LABS: CALCIUM 8.9 MG/DL (8.5-10.1)
[2017-08-13 14:08] LABS: ALBUMIN 3.3 GM/DL (3.4-5.0); BICARBONATE 22.5 MEQ/L (21.0-32.0); BLOOD UREA NITROGEN 11 MG/DL (7-18); GLUCOSE,RANDOM 92 MG/DL (74-106)
--- NOTE | 2017-08-13 14:08 | RADRPT ---
EXAM DATE: 08/13/2017 1:44 PM EDT AGE/SEX: 31 years / Female INDICATIONS: Cephalgia. Nausea. CLINICAL DATA: This is the patient's initial encounter. Patient reports that signs and symptoms have been present for 3 days and indicates a pain score of 9/10. MEDICAL/SURGICAL HISTORY: Cardiovascular disease. Cholecystectomy. Tubal ligation. Hysterectomy. RADIATION DOSE: 52.98 CTDI (mGy) COMPARISON: [facility], CT BRAIN W/O CONTRAST, 12/09/2014. . TECHNIQUE: CT of the head without contrast. Using automated exposure control and adjustment of the mA and/or kV according to patient size, radiation dose was kept as low as reasonably achievable to ob tain optimal diagnostic quality images. FINDINGS: Cerebrum: The ventricles are normal for age. No evidence of midline shift, mass lesion, hemorrhage or acute infarction. No extraaxial fluid collections are seen. Posterior Fossa: The cerebellum and brainstem are intact. The 4th ventricle is midline. The cerebe llopontine angle is unremarkable. Extracranial: The visualized portion of the orbits is intact. Skull: The calvaria is intact. No evidence of skull fracture. CONCLUSION: Negative CT Head non contrast. Electronically signed by: Manuel Garibay MD 08/13/2017 2:06 PM EDT
[2017-08-13 14:09] VITALS: O2SAT 100
[2017-08-13 14:10] VITALS: BP 104/69; PULSE 84; RESP 16; O2SAT 100
[2017-08-13 14:11] LABS: ALT (GPT) 50 U/L (10-53); AST (GOT) 29 U/L (15-37); CREATININE 0.59 MG/DL (0.50-1.00); GLOMERULAR FILTRATION RATE 119 ML/MIN (>89)
[2017-08-13 14:12] LABS: TOTAL BILIRUBIN ADULT 0.4 MG/DL (0.2-1.0)
[2017-08-13 14:14] LABS: ALKALINE PHOSPHATASE 88 U/L (45-117)
[2017-08-13] MEDS ORDERED: IBUP-232 PO (15:05)
[2017-08-13 15:23] VITALS: BP 100/74
== END 2017-08-13 15:29 | disposition home or self-care (01) ==
LOC: PHED 12:49
DX: N39.0 Urinary tract infection, site not specified (principal); B96.20 Unspecified Escherichia coli [E. coli] as the cause of diseases classified elsewhere; R51 Headache; F32.9 Major depressive disorder, single episode, unspecified; F17.210 Nicotine dependence, cigarettes, uncomplicated
CPT/HCPCS: 70450; 80053; 81001; 83605; 85025; 87040; 87086; 96361; 96374; 96375; 99284; J1885; J2405; J7030